=== PATIENT | female | born 1995 | race Caucasian/White ===

== ENCOUNTER 2016-10-22 08:17 | Inpatient (IN) | payer OTHER, BC ==
[~2016-10-22] VITALS: Ht 165.1 cm; Wt 92.7 kg
[2016-10-22] MEDS ORDERED: OXYTOCIN 30U/ 0.9% NaCL 500ML 500 ML IV ONE (08:56)
[2016-10-22] MEDS ORDERED: ONDANSETRON 2MG/ML, 2ML IVPush PRN (09:00)
[2016-10-22] MEDS ORDERED: CALCIUM CARBONATE 500 MG TAB.CHEW PO PRN (09:00)
[2016-10-22 09:03] VITALS: BP 154/98
[2016-10-22] MEDS ORDERED: LIDOCAINE 1%, 20ML ONE (09:28)
[2016-10-22] MEDS ORDERED: MISOPROSTOL 200 MCG TABLET ONE (09:29)
[2016-10-22] MEDS ORDERED: NEWBORN KIT ONE (09:29)
[2016-10-22] MEDS ORDERED: OXYTOCIN 30U/ 0.9% NaCL 500ML 500 ML ONE (09:29)
[2016-10-22 09:56] LABS: HEMOGLOBIN 13.5 g/dL (11.7-16.4)
[2016-10-22 10:06] LABS: ASPARTATE AMINO TRANSFERASE 13 U/L (15-37); BLOOD UREA NITROGEN 10 mg/dL (7-18)
[2016-10-22] MEDS ORDERED: OXYTOCIN 30U/ 0.9% NaCL 500ML 500 ML IV PRN (10:14)
[2016-10-22] MEDS: LACTATED RINGERS 1,000 ML IV SCH ×4 (10:15→16:43)
[2016-10-22] MEDS ORDERED: FENTANYL PF 100 MCG/2ML ONE ×3 (13:18→15:11)
[2016-10-22] MEDS: FENTANYL PF 100 MCG/2ML IVPush PRN ×2 (13:28→15:01)
[2016-10-22] MEDS ORDERED: BUPIVACAINE 0.25% ONE (15:11)
[2016-10-22] MEDS ORDERED: FENTANYL/BUPIV./NS/PF 250 ML EPIDCONT SCH (15:18)
[2016-10-22] MEDS ORDERED: LACTATED RINGERS 1,000 ML IVBOLUS PRN (15:30)
[2016-10-22] MEDS: D5%-LACTATED RINGERS 1,000 ML IV SCH (16:56)
[2016-10-22 17:35] VITALS: BP 128/64
[2016-10-23] MEDS ORDERED: TERBUTALINE 1 MG/ML, 1ML ONE (00:15)
[2016-10-23] MEDS: TERBUTALINE 1 MG/ML, 1ML IVPush PRN ×2 (00:22→00:49)
[2016-10-23] MEDS ORDERED: TERBUTALINE 1 MG/ML, 1ML SQ PRN (00:30)
[2016-10-23] MEDS: D5%-LACTATED RINGERS 1,000 ML IV SCH ×2 (00:56→02:27)
[2016-10-23] MEDS: AMPICILLIN 2 GM in SODIUM CHLORIDE 0.9% 100 ML IV SCH ×3 (00:59→13:00)
[2016-10-23] MEDS: OXYTOCIN 30U/ 0.9% NaCL 500ML 500 ML IV SCH ×2 (01:59→11:59)
[2016-10-23] MEDS ORDERED: OXYcodone/APAP 5/325MG TABLET PO PRN (02:00)
[2016-10-23] MEDS ORDERED: METOCLOPRAMIDE 5 MG/ML, 2ML IV PRN (02:00)
[2016-10-23] MEDS ORDERED: METHYLERGONOVINE 0.2 MG/ML IM PRN (02:00)
[2016-10-23] MEDS ORDERED: MISOPROSTOL 200 MCG TABLET PR PRN (02:00)
[2016-10-23] MEDS ORDERED: CARBOPROST TROMETHAMINE 250 MCG/ML, 1ML IM PRN (02:00)
[2016-10-23] MEDS ORDERED: ONDANSETRON 2MG/ML, 2ML IV PRN (02:00)
[2016-10-23] MEDS ORDERED: BISACODYL 10 MG SUPP PR PRN (02:00)
[2016-10-23] MEDS ORDERED: GLYCERIN ADULT SUPP PR PRN (02:00)
[2016-10-23] MEDS ORDERED: ACETAMINOPHEN 325 MG TABLET PO PRN (02:00)
[2016-10-23] MEDS: LACTATED RINGERS 1,000 ML IV SCH ×2 (02:24→07:18)
[2016-10-23 08:20] VITALS: BP 130/86
[2016-10-23] MEDS: IBUPROFEN 600 MG TABLET PO PRN ×2 (08:26→17:03)
[2016-10-23] MEDS: OXYcodone/APAP 5/325MG TABLET PO PRN ×4 (08:26→21:38)
[2016-10-23] MEDS: PRENATAL VIT/IRON/FA 1 EACH TABLET PO SCH (09:00)
[2016-10-23 12:58] VITALS: BP 116/52
[2016-10-23 13:45] LABS: HEMOGLOBIN 12.1 g/dL (11.7-16.4)
[2016-10-23 16:45] VITALS: BP 114/67
[2016-10-23 19:55] VITALS: BP 132/80
[2016-10-24] MEDS: IBUPROFEN 600 MG TABLET PO PRN ×3 (00:03→20:47)
[2016-10-24 00:25] VITALS: BP 124/77
[2016-10-24 03:48] VITALS: BP 134/73
[2016-10-24] MEDS: OXYcodone/APAP 5/325MG TABLET PO PRN ×2 (05:03→20:47)
[2016-10-24 08:10] VITALS: BP 120/74
[2016-10-24] MEDS: DOCUSATE 100 MG CAPSULE PO PRN ×2 (08:18→20:47)
[2016-10-24] MEDS: PRENATAL VIT/IRON/FA 1 EACH TABLET PO SCH (08:18)
[2016-10-24] MEDS ORDERED: MEASLES,MUMPS&RUBELLA VACC/PF 0.5 ML SQ-VACC ONE (17:30)
[2016-10-24 19:30] VITALS: BP 135/90
[2016-10-25] MEDS: IBUPROFEN 600 MG TABLET PO PRN (02:39)
[2016-10-25] MEDS: OXYcodone/APAP 5/325MG TABLET PO PRN (02:39)
[2016-10-25 06:25] VITALS: BP 118/75
[2016-10-25] MEDS: PRENATAL VIT/IRON/FA 1 EACH TABLET PO SCH (09:00)
[2016-10-25] MEDS ORDERED: OXYC-302 PO (10:55)
[2016-10-25] MEDS ORDERED: IBUP-1222 PO (10:56)
[2016-10-25] MEDS ORDERED: DOCU-30 PO (10:57)
== END 2016-10-25 13:30 | disposition home or self-care (01) | DRG 775 ==
LOC: LDOP 08:17 → LDIP 09:02 → 2NW 10-23 08:29
PROVIDERS: ADMIT Obstetrics & Gynecology; ATTEND Obstetrics & Gynecology
PROC: 0T9B70Z Drainage of Bladder with Drainage Device, Via Natural or Artificial Opening (ICD-10-PCS; 2016-10-22)
PROC: 10D07Z6 Extraction of Products of Conception, Vacuum, Via Natural or Artificial Opening (ICD-10-PCS; principal; 2016-10-23)
PROC: 3E0E7GC Introduction of Other Therapeutic Substance into Products of Conception, Via Natural or Artificial Opening (ICD-10-PCS; 2016-10-23)
PROC: 0W8NXZZ Division of Female Perineum, External Approach (ICD-10-PCS; 2016-10-23)
PROC: 3E0R3CZ (ICD-10-PCS; 2016-10-23)
PROC: 00HU33Z Insertion of Infusion Device into Spinal Canal, Percutaneous Approach (ICD-10-PCS; 2016-10-23)
DX: O76 Abnormality in fetal heart rate and rhythm complicating labor and delivery (principal); O99.354 Diseases of the nervous system complicating childbirth; O42.92 Full-term premature rupture of membranes, unspecified as to length of time between rupture and onset of labor; O99.214 Obesity complicating childbirth; O69.1XX0 Labor and delivery complicated by cord around neck, with compression, not applicable or unspecified; E66.01 Morbid (severe) obesity due to excess calories; G43.909 Migraine, unspecified, not intractable, without status migrainosus; Z68.34 Body mass index [BMI] 34.0-34.9, adult; Z23 Encounter for immunization; Z37.0 Single live birth; Z3A.40 40 weeks gestation of pregnancy
CPT/HCPCS: 36415; 80053; 81001; 82803; 84550; 85025; 86850; 86900; 89060; J0290; J2405; J3010; J2590; J3105; J7120; J7121; Q0114

== ENCOUNTER → 2017-12-13 | Outpatient (CLI) | payer OTHER, BC ==
[~2017-12-13] MED LIST: DOCU-131 PO; IBUP-1222 PO; OXYC-302 PO
== END | disposition home or self-care (01) ==
LOC: RAD 17:20
PROVIDERS: ATTEND Obstetrics & Gynecology
DX: N83.01 Follicular cyst of right ovary (principal); N83.02 Follicular cyst of left ovary; Z97.5 Presence of (intrauterine) contraceptive device
CPT/HCPCS: 76830

== ENCOUNTER 2021-02-21 07:42 | Emergency (ER) | payer BC, OTHER ==
[~2021-02-21] VITALS: Ht 162.6 cm; Wt 86.9 kg
[~2021-02-21 07:42] MED LIST changes: -OXYC-302 PO; +OXYC1TAB14 PO
[2021-02-21] MEDS ORDERED: SODIUM CHLORIDE 0.9% 1,000ML IVBOLUS ONE (09:00)
[2021-02-21] MEDS ORDERED: SODIUM CHLORIDE FLUSH 10ML SYR IVF ONE (09:00)
--- NOTE | 2021-02-21 09:29 | NUR ---
PT. IS A & O X 4 WITH A [employer] OF 15. PT. IS PINK, WARM AND DRY WITH C/O OF BEING COVID + AND FEELING POORLY. PT. STATES SHE FEEL SOB. RESPIRATIONS ARE EUPNEIC WITH SATS 95% ON RA. LUNGS ARE CTA THROUGHOUT. CAP REFILL IS BRISK, LESS THAN 2 SECONDS WITH PULSES +2 THROUGHOUT. PT. IS ABLE TO BO WNL. PT.'S ABD. IS SOFT AND ROUND WITH BS + X 4 QUADS. IV ACCESS WAS ESTABLISHED AND THE PT.'S FLUID BOLUS IS INFUSING. PT. IS REQUESTING A CHEST XRAY. DISCUSSED WITH DR. MCMILLAN AND IT WAS ORDERED. PT. WAS GIVEN A PILLOW AND A BLANKET. HOB IS ELEVATED AND THE CALL LIGHT IS IN PLACE.
--- NOTE | 2021-02-21 11:01 | NUR ---
PT.'S NS BOLUS IS COMPLETE. RESP REMAIN EUPNEIC WITH SATS 95% ON ROOM AIR. PT. WAS GIVEN DISCHARGE INSTRUCTIONS AND A SCRIPT WITH UNDERSTANDING VERBALIZED. PT. WAS AMBULATORY TO THE DISCHARGE DESK. PT.'S IV WAS DCD, CATH TIP INTACT. PRESSURE HELD WITH HEMOSTASIS ACHIEVED.
[2021-02-21 11:05] VITALS: BP 104/68
== END 2021-02-21 11:08 ==
LOC: ED 10:50
DX: U07.1 COVID-19 (principal); J12.82 Pneumonia due to coronavirus disease 2019; R06.02 Shortness of breath; R00.0 Tachycardia, unspecified
CPT/HCPCS: 71045; 93005; 96360; 96361; 99283; J7030